=== PATIENT | male | born 2000 | race Two or more races ===

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

== ENCOUNTER 2021-06-16 12:31 | Emergency (ER) | payer BC ==
[~2021-06-16] VITALS: Ht 180.3 cm; Wt 91.8 kg
[~2021-06-16 12:31] MED LIST: HYDR-3165 PO; ONDA4TAB10 SL; TAMS0.4C97 PO
[2021-06-16 12:45] VITALS: BP 131/85
--- NOTE | 2021-06-16 12:47 | PHYS DOC ---
Past History Past Medical History: No Pertinent History Past Surgical History: No Surgical History Smoking: Non-smoker Alcohol Use: None Drug Use: None Adult General Chief Complaint Chief Complaint: ABDOMINAL PAIN HPI HPI Patient is a healthy 20-year-old male presenting for right lower quadrant pain. Onset was yesterday evening without any known inciting event, trauma, ingestion, exposure, or sick contact or recent travel. Nothing known makes better, eating makes worse. Patient reports vague right-sided flank and right lower quadrant pain that has been constant since onset. He has not taken anything in attempt to control the pain. He has never had any intra-abdominal abnormalities or surgeries in the past. Denies any genital abnormalities or problems. States he is otherwise healthy with no known medical issues, takes no medications on a daily basis. He does admit he has had history of kidney stones in the past and unsure if this is similar to prior presentation Review of Systems Review of Systems Fourteen body systems of review of systems have been reviewed. See HPI for pertinent positives and negative responses, other dunlap all other systems are n egative, non-pertinent or non-contributory Allergies Allergies Allergies Coded Allergies Type Severity Reaction Last Updated Verified No Known Drug Allergies 06/29/17 No Physical Exam Physical Exam Constitutional: Well developed age-appropriate male who is nontoxic in appearance but does appear uncomfortable due to pain HENT: Normocephalic, atraumatic, bilateral external ears normal, oropharynx moist, no oral exudates, nose normal. Eyes: PERRLA, EOMI, conjunctiva normal, no discharge. Neck: Normal range of motion, no tenderness, supple, no stridor. Cardiovascular: Heart rate regular, sinus rhythm, no murmurs rubs or gallops Lungs & Thorax: Bilateral breath sounds clear to auscultation Abdomen: Bowel sounds normal, soft, right lower quadrant tenderness to palpation with positive McBurney point tenderness, negative Fowler sign, no masses, no pulsatile masses. Nonsurgical abdomen, no peritoneal signs Skin: Warm, dry, no erythema, no rash. Back: No tenderness, right CVA tenderness. Extremities: No tenderness, no cyanosis, no clubbing, ROM intact, no edema. Neurologic: Alert and oriented X 3, grossly normal motor & sensory function, no focal deficits noted. Psychologic: Affect normal, judgement normal, mood normal. Current Patient Data Vital Signs Vital Signs Date Time Temp Pulse Resp B/P (MAP) Pulse Ox O2 Delivery O2 Flow Rate FiO2 06/16/21 12:45 98.2 66 18 131/85 (100) 99 Vital Signs Date Time Temp Pulse Resp B/P (MAP) Pulse Ox O2 Delivery O2 Flow Rate FiO2 06/16/21 12:45 98.2 66 18 131/85 (100) 99 Lab Results Laboratory Tests Test 06/16/21 12:30 06/16/21 13:24 06/16/21 13:48 Urine Collection Type Unknown Urine Color Yellow Urine Clarity Clear Urine pH 8.5 Urine Specific [place] 1.020 Urine Protein Trace Urine Glucose (UA) Neg mg/dL Urine Ketones (Stick) Neg mg/dL Urine Blood Large Urine Nitrite Neg Urine Bilirubin Neg Urine Urobilinogen Dipstick 1.0 mg/dL Urine Leukocyte Esterase Neg Urine RBC 6-10 /HPF Urine WBC 1-4 /HPF Urine Squamous Epithelial Cells Occ /LPF Urine Bacteria 0 /HPF Urine Mucus Mod /LPF White Blood Count 6.1 x10^3/uL Red Blood Count 4.78 x10^6/uL Hemoglobin 14.4 g/dL Hematocrit 42.7 % Mean Corpuscular Volume 89 fL Mean Corpuscular Hemoglobin 30 pg Mean Corpuscular Hemoglobin Concent 34 g/dL Red Cell Distribution Width 14.2 % Platelet Count 227 x10^3/uL Neutrophils (%) (Auto) 72 % Lymphocytes (%) (Auto) 20 % Monocytes (%) (Auto) 7 % Eosinophils (%) (Auto) 1 % Basophils (%) (Auto) 1 % Neutrophils # (Auto) 4.4 x10^3uL Lymphocytes # (Auto) 1.2 x10^3/uL Monocytes # (Auto) 0.4 x10^3/uL Eosinophils # (Auto) 0.1 x10^3/uL Basophils # (Auto) 0.0 x10^3/uL Sodium Level 142 mmol/L Potassium Level 3.8 mmol/L Chloride Level 105 mmol/L Carbon Dioxide Level 26 mmol/L Anion Gap 11 Blood Urea Nitrogen 8 mg/dL Creatinine 0.9 mg/dL Estimated GFR (Cockcroft-Gault) 105.5 BUN/Creatinine Ratio 9 Glucose Level 108 mg/dL Calcium Level 8.9 mg/dL Total Bilirubin 0.8 mg/dL Aspartate Amino Transf (AST/SGOT) 19 U/L Alanine Aminotransferase (ALT/SGPT) 36 U/L Alkaline Phosphatase 104 U/L Total Protein 6.7 g/dL Albumin 3.9 g/dL Albumin/Globulin Ratio 1.4 Current Medications Medications (Trade) Dose Ordered Sig/Scotty Route PRN Reason Start Time Stop Time Status Last Admin Dose Admin Fentanyl Citrate (Fentanyl 2ml Vial) 50 mcg 1X ONCE IVP 06/16/21 13:30 06/16/21 13:31 DC 06/16/21 13:39 Ondansetron HCl (Zofran) 4 mg 1X ONCE IVP 06/16/21 13:30 06/16/21 13:31 DC 06/16/21 13:39 EKG EKG [] Radiology/Procedures Radiology/Procedures Ultrasound of the right upper quadrant of the abdomen 06/16/2021 CLINICAL HISTORY: Right upper quadrant abdominal pain. TECHNIQUE: A real-time ultrasound examination of the right upper quadrant of the abdomen was performed. Multiple images were obtained. FINDINGS: Comparison is made to the patient's CT scan of the abdomen dated 06/29/2017. The gallbladder is well-distended. No gallstones are visualized. The gallbladder wall thickness is within normal limits. No pericholecystic fluid is seen. The common bile duct measures 2 mm in diameter which is within normal limits. The liver is normal in size and echogenicity. It measures 15 cm in length. The pancreas is not well-visualized due to overlying bowel gas. The right kidney is within normal limits. No free fluid is seen. IMPRESSION: Negative study. Electronically signed by: Brent Gomez MD (06/16/2021 2:27 PM) [id number] //////////////////////////////////////////////////////////////////////////////// //////////////////////////////// US ABDOMEN LIMITED History:Reason: RLQ PAIN / Spl. Instructions: / History: Comparison: None Technique: Sonographic examination of the right lower quadrant Findings: Appendix not identified. Unremarkable appearance of the urinary bladder. Impression: 1. Appendix not identified. Electronically signed by: Addy Donohue DO (06/16/2021 3:14 PM) [facility] Heart Score C/O Chest Pain: No Risk Factors: Risk Factors: DM, Current or recent (<one month) smoker, HTN, HLP, family history of CAD, obesity. Risk Scores: Risk Factors: DM, Current or recent (<one month) smoker, HTN, HLP, family history of CAD, obesity. Course & Med Decision Making Course & Med Decision Making ABCs unremarkable. I disclosed entirety of ER findings and discussed most likely diagnosis of uncomplicated kidney stone. Other diagnoses were discussed with patient such as intra-abdominal issues such as appendicitis, inguinal hernia and other concerning diagnoses but all deemed less likely causes of patient's presentation. I discussed potential need for CT scan of abdomen for definitive evaluation but given that patient symptoms completely resolved with provided intervention, joint decision made to discharge home with continued supportive care and close outpatient follow-up. Plan of care discussed at length with need for close outpatient follow-up to review today's ER visit stressed. Strict return precautions were also discussed at length with good understanding verbalized by patient. Patient voiced understanding and agreement with the plan. Patient knows to come back for repeat evaluation if concerning signs or symptoms present prior to outpatient follow-up. Hemodynamically stable, ambulatory and well-appearing at time of disposition. Dragon Disclaimer Dragon Disclaimer This electronic medical record was generated, in whole or in part, using a voice recognition dictation system. Departure Departure: Impression: Primary Impression: Right flank pain Disposition: HOME / SELF CARE / HOMELESS Condition: IMPROVED Referrals: PCPMARIANNA (PCP) Patient Instructions: Flank Pain, [id number] Additional Instructions: You have been evaluated in the Emergency Department today for right-sided flank/abdominal pain. Your evaluation was not suggestive of any emergent condition requiring medical intervention at this time. However, some abdominal problems make take more time to appear. Therefore, it is important for you to watch for any new symptoms or worsening of your current condition. As disclosed you are likely suffering from a kidney stone which you should strain your urine daily and take Tylenol and/or ibuprofen as needed for pain Please follow-up with your primary care physician and outpatient vocational trainer for continued care and evaluation as needed Return to the Emergency Department if you experience worsening pain, persistent fevers greater than 100.4, recurrent vomiting, blood in vomit, blood in stool, dark tarry stool, chest pain, difficulty breathing, or any other concerning symptoms. ANAM SOUSA DO Jun 16, 2021 12:47
[2021-06-16] MEDS ORDERED: ONDANSETRON PF 4 MG/2 ML VIAL. IVP ONE (13:30)
[2021-06-16 13:42] LABS: BASO % 1 % (0-3); EOS # 0.1 x10^3/uL (0.0-0.7); EOS % 1 % (0-3); HEMATOCRIT 42.7 % (39.0-53.0); HEMOGLOBIN 14.4 g/dL (13.0-17.5); LYMPH # 1.2 x10^3/uL (1.0-4.8); LYMPH % 20 % (24-48); MEAN CORPUSCULAR HEMOGLOBIN 30 pg (25-35); MEAN CORPUSCULAR HGB CONC 34 g/dL (31-37); MEAN CORPUSCULAR VOLUME 89 fL (79-100); MONO # 0.4 x10^3/uL (0.0-1.1); MONO % 7 % (0-9); NEUT # 4.4 x10^3uL (1.8-7.7); NEUT % 72 % (31-73); PLATELET COUNT 227 x10^3/uL (140-400); RED BLOOD COUNT 4.78 x10^6/uL (4.30-5.70); RED CELL DISTRIBUTION WIDTH 14.2 % (11.5-14.5); WHITE BLOOD COUNT 6.1 x10^3/uL (4.0-11.0)
[2021-06-16 14:19] LABS: CALCIUM 8.9 mg/dL (8.5-10.1); CREATININE 0.9 mg/dL (0.7-1.3); GFR 105.5; POTASSIUM 3.8 mmol/L (3.5-5.1)
[2021-06-16 14:25] LABS: ALBUMIN 3.9 g/dL (3.4-5.0); ALBUMIN/GLOBULIN RATIO 1.4 (1.0-1.7); TOTAL BILIRUBIN 0.8 mg/dL (0.2-1.0); TOTAL PROTEIN 6.7 g/dL (6.4-8.2)
--- NOTE | 2021-06-16 14:29 | RAD ---
Ultrasound of the right upper quadrant of the abdomen 06/16/2021 CLINICAL HISTORY: Right upper quadrant abdominal pain. TECHNIQUE: A real-time ultrasound examination of the right upper quadrant of the abdomen was harvinder d. Multiple images were obtained. FINDINGS: Comparison is made to the patient's CT scan of the abdomen dated 06/29/2017. The gallbladder is well-distended. No gallstones are visualized. The gallbladder wall thickness is wi thin normal limits. No pericholecystic fluid is seen. The common bile duct measures 2 mm in diameter which is within normal limits. The liver is normal in size and echogenicity. It measures 15 cm in length. The pancreas is not well-v isualized due to overlying bowel gas. The right kidney is within normal limits. No free fluid is seen . IMPRESSION: Negative study. Electronically signed by: Brent Gomez MD (06/16/2021 2:27 PM) [id number]
--- NOTE | 2021-06-16 15:16 | RAD ---
US ABDOMEN LIMITED History:Reason: RLQ PAIN / Spl. Instructions: / History: Comparison: None Technique: Sonographic examination of the right lower quadrant Findings: Appendix not identified. Unremarkable appearance of the urinary bladder. Impression: 1. Appendix not identified. Electronically signed by: Addy Donohue DO (06/16/2021 3:14 PM) [facility]
[2021-06-16 15:38] LABS: BACTERIA,URINE 0 /HPF (0-FEW); BILIRUBIN,URINE NEG (NEG); CLARITY,URINE CLEAR; COLOR,URINE YELLOW; GLUCOSE,URINE NEG (NEG); NITRITE,URINE NEG (NEG); SQUAMOUS EPITHELIAL CELL,UR OCC /LPF
== END 2021-06-16 16:14 | disposition home or self-care (01) ==
LOC: ER 12:31
DX: R10.31 Right lower quadrant pain (principal); Z87.442 Personal history of urinary calculi
CPT/HCPCS: 36415; 76705; 80053; 81001; 85025; 93976; 96374; 96375; 99285; J2405; J3010